=== PATIENT | male | born 1960 | race Caucasian/White ===

== ENCOUNTER → 2023-04-20 12:40 | Outpatient (REF) | payer SELFPAY | LOC: HWRAD 12:40 | PROVIDERS: ATTENDING PHYSICIAN Internal Medicine | DX: Z00.00 Encounter for general adult medical examination without abnormal findings (principal) | CPT/HCPCS: 75571 ==

== ENCOUNTER → 2023-05-11 10:35 | Outpatient (REF) | payer BC, SELFPAY | LOC: RCS 10:35 | PROVIDERS: ATTENDING PHYSICIAN Internal Medicine Cardiovascular Disease; FAMILY PHYSICIAN Internal Medicine | DX: R93.1 Abnormal findings on diagnostic imaging of heart and coronary circulation (principal); I10 Essential (primary) hypertension | CPT/HCPCS: 93306 ==

== ENCOUNTER → 2023-05-24 08:19 | Outpatient (REF) | payer BC, SELFPAY | LOC: RCS 08:19 | PROVIDERS: ATTENDING PHYSICIAN Internal Medicine Cardiovascular Disease; FAMILY PHYSICIAN Internal Medicine | DX: R93.1 Abnormal findings on diagnostic imaging of heart and coronary circulation (principal); I10 Essential (primary) hypertension | CPT/HCPCS: 93017; 93350 ==